=== PATIENT | female | born 1985 | race Caucasian/White ===

== ENCOUNTER 2018-01-03 15:00 | Outpatient (CLI) | payer MEDICAID ==
[2018-01-03 16:22] VITALS: BP 121/75
== END 2018-01-03 16:30 | disposition home or self-care (01) ==
LOC: ORTHO 15:00
PROVIDERS: ATTEND Nurse Practitioner Family
DX: M25.531 Pain in right wrist (principal); M25.532 Pain in left wrist; F12.90 Cannabis use, unspecified, uncomplicated; Z91.041 Radiographic dye allergy status; Z88.5 Allergy status to narcotic agent
CPT/HCPCS: 73100; 73110

== ENCOUNTER 2018-01-17 13:23 | Outpatient (CLI) | payer MEDICAID ==
[2018-01-17 13:22] VITALS: BP 129/94
== END 2018-01-17 14:14 | disposition home or self-care (01) ==
LOC: ORTHO 13:23
PROVIDERS: ATTEND Nurse Practitioner Family
DX: S69.91XD Unspecified injury of right wrist, hand and finger(s), subsequent encounter (principal); Z91.041 Radiographic dye allergy status; Z88.5 Allergy status to narcotic agent; W18.30XD Fall on same level, unspecified, subsequent encounter
CPT/HCPCS: 99212

== ENCOUNTER 2018-05-31 08:53 | Emergency (ER) | payer MEDICAID ==
[~2018-05-31] VITALS: Ht 177.8 cm; Wt 164.4 kg
[2018-05-31 09:34] LABS: CLARITY,URINE CLOUDY (Clear); COLOR,URINE YELLOW (Yellow); GLUCOSE, URINE NEGATIVE (Neg); KETONES,URINE NEGATIVE (Neg); LEUKOCYTE ESTERASE ,URINE MODERATE (Neg); NITRITES, URINE NEGATIVE (Neg); OCCULT BLOOD,URINE MODERATE (Neg); PH,URINE 6.5 (4.8-8.0); PROTEIN,URINE NEGATIVE (Neg); UA COLLECTION TYPE CLN CATCH MIDSTREAM; UROBILINOGEN,URINE 0.2 E.U/dL (0.2-1.0)
[2018-05-31 09:35] LABS: URINE HCG NEGATIVE (NEG)
[2018-05-31 09:42] LABS: BASOPHILS # (AUTO) 0.1 X10'3 (0-0.2); BASOPHILS % (AUTO) 0.5 % (0-1); EOSINOPHILS # (AUTO) 0.2 X10'3 (0-0.9); EOSINOPHILS % (AUTO) 1.6 % (0-6); HEMATOCRIT 41.1 % (35.0-45.0); HEMOGLOBIN 13.8 g/dl (12.0-16.0); LYMPHOCYTES # (AUTO) 2.1 X10'3 (1.1-4.8); LYMPHOCYTES % (AUTO) 20.8 % (21-51); MEAN CORPUSCULAR HEMOGLOBIN 28.1 PG (27.0-31.0); MEAN CORPUSCULAR HGB CONC 33.6 g/dL (33.0-36.5); MEAN CORPUSCULAR VOLUME 83.6 FL (78-98); MEAN PLATELET VOLUME 8.6 FL (7.4-10.4); MONOCYTES # (AUTO) 0.5 X10'3 (0-0.9); NEUTROPHILS # (AUTO) 7.3 X10'3 (1.8-7.7); NEUTROPHILS % (AUTO) 72.1 % (42-75); PLATELET COUNT 306 X10'3 (140-440); RED BLOOD COUNT 4.92 X10'6 (4.20-5.60); RED CELL DISTRIBUTION WIDTH 16.1 % (11.5-14.5); WHITE BLOOD COUNT 10.2 X10'3 (4.5-11.0)
[2018-05-31 09:42] LABS: BACTERIA,URINE 2+ /HPF (Neg); MUCUS STRANDS MODERATE /LPF (Neg); SQUAMOUS EPITHELIAL CELL,UR MANY /LPF (FEW)
[2018-05-31 09:43] LABS: WBC CLUMPS,URINE MANY /HPF (NEGATIVE); WBC,URINE 50-100 /HPF (0-4)
[2018-05-31 09:49] LABS: PROTHROMBIN TIME 10.4 SECONDS (9.0-12.0)
[2018-05-31 09:50] LABS: ALANINE AMINOTRANSFERASE 35 U/L (12-78); ALBUMIN 3.3 G/DL (3.4-5.0); ALBUMIN/GLOBULIN RATIO 0.7 (1.1-1.5); ALKALINE PHOSPHATASE 84 IU/L (46-116); AMYLASE 41 U/L (25-115); ANION GAP 10 (8-16); ASPARTATE AMINO TRANSFERASE 25 U/L (10-37); BILIRUBIN,TOTAL 0.4 MG/DL (0.1-1.0); BLOOD UREA NITROGEN 12 MG/DL (7-18); BUN/CREATININE RATIO 17.1 (6.6-38.0); CALCIUM 8.6 MG/DL (8.5-10.1); CHLORIDE 101 MMOL/L (99-107); GLUCOSE 94 MG/DL (70-104); LIPASE 92 U/L (73-393); POTASSIUM 4.2 MMOL/L (3.5-5.1); SODIUM 134 MMOL/L (135-145); TOTAL CARBON DIOXIDE 22.8 MMOL/L (24-32); eGFR > 90 ML/MIN
[2018-05-31] MEDS ORDERED: NO HOME MEDS (10:18)
--- NOTE | 2018-05-31 10:32 | NUR ---
Spoke with Fisher regarding pain level, Fisher PA stated that due to morphine allergy should could not administer narcotics. She wants to hold off on pain medication until CT resulted.
--- NOTE | 2018-05-31 11:29 | NUR ---
Ultrasound in progress
--- NOTE | 2018-05-31 12:11 | NUR ---
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
--- NOTE | 2018-05-31 12:11 | NUR ---
set up for pelv ic exam with dr farmer
--- NOTE | 2018-05-31 12:18 | NUR ---
VAGINAL EXAM COMPLETE BY CLARA MILLS,PRESENT JEREMI, WET M[place] SLIDE SENT
[2018-05-31] MEDS ORDERED: NITR100C6 PO (13:16)
[2018-05-31] MEDS ORDERED: ONDA4TAB6 PO (13:16)
[2018-05-31 13:46] VITALS: BP 132/78
[2018-06-01] MEDS ORDERED: ONDA4TAB12 PO (09:30)
[2018-06-01] MEDS ORDERED: CEPH500C5 PO (10:18)
== END 2018-05-31 13:47 | disposition home or self-care (01) ==
LOC: ER 08:53
DX: N39.0 Urinary tract infection, site not specified (principal); F12.90 Cannabis use, unspecified, uncomplicated; Z88.6 Allergy status to analgesic agent; Z90.49 Acquired absence of other specified parts of digestive tract
CPT/HCPCS: 36415; 74176; 76830; 76857; 80053; 81001; 81025; 82150; 83690; 85025; 85610; 87210; 87491; 99284

== ENCOUNTER 2018-06-01 07:14 | Emergency (ER) | payer MEDICAID ==
[~2018-06-01] VITALS: Ht 177.8 cm; Wt 164.0 kg
[~2018-06-01 07:14] MED LIST: NITR100C6 PO; NO HOME MEDS; ONDA4TAB6 PO
[2018-06-01] MEDS ORDERED: HYDROmorphone inj. 0.5 MG/0.5 ML DISP.SYRIN IV PRN (07:30)
[2018-06-01] MEDS ORDERED: normal saline 1000ML IV soln IVB ONE ×2 (07:30)
[2018-06-01] MEDS ORDERED: diphenhydrAMINE 50 mg/ml inj IV ONE (07:30)
[2018-06-01] MEDS ORDERED: LORazepam 2 mg/ml vial IV ONE (07:30)
[2018-06-01] MEDS ORDERED: metoclopramide 5 mg/ml inj IV ONE (07:30)
[2018-06-01 07:50] LABS: BASOPHILS % (AUTO) 0.3 % (0-1); EOSINOPHILS # (AUTO) 0.1 X10'3 (0-0.9); EOSINOPHILS % (AUTO) 1.1 % (0-6); HEMATOCRIT 40.9 % (35.0-45.0); HEMOGLOBIN 13.8 g/dl (12.0-16.0); LYMPHOCYTES # (AUTO) 1.8 X10'3 (1.1-4.8); LYMPHOCYTES % (AUTO) 18.6 % (21-51); MEAN CORPUSCULAR HGB CONC 33.6 g/dL (33.0-36.5); MEAN CORPUSCULAR VOLUME 83.4 FL (78-98); MEAN PLATELET VOLUME 8.6 FL (7.4-10.4); MONOCYTES # (AUTO) 0.5 X10'3 (0-0.9); MONOCYTES % (AUTO) 4.8 % (2-12); NEUTROPHILS # (AUTO) 7.2 X10'3 (1.8-7.7); NEUTROPHILS % (AUTO) 75.2 % (42-75); PLATELET COUNT 280 X10'3 (140-440); RED CELL DISTRIBUTION WIDTH 15.6 % (11.5-14.5); WHITE BLOOD COUNT 9.5 X10'3 (4.5-11.0)
[2018-06-01 08:24] LABS: ALANINE AMINOTRANSFERASE 35 U/L (12-78); ALBUMIN 3.4 G/DL (3.4-5.0); ALBUMIN/GLOBULIN RATIO 0.7 (1.1-1.5); ALKALINE PHOSPHATASE 85 IU/L (46-116); ANION GAP 10 (8-16); BILIRUBIN,TOTAL 0.5 MG/DL (0.1-1.0); BLOOD UREA NITROGEN 13 MG/DL (7-18); BUN/CREATININE RATIO 16.7 (6.6-38.0); CALCIUM 8.7 MG/DL (8.5-10.1); CHLORIDE 101 MMOL/L (99-107); CREATININE 0.78 MG/DL (0.40-0.90); GLUCOSE 101 MG/DL (70-104); LIPASE 85 U/L (73-393); POTASSIUM 3.9 MMOL/L (3.5-5.1); SODIUM 134 MMOL/L (135-145); TOTAL CARBON DIOXIDE 23.3 MMOL/L (24-32); TOTAL PROTEIN 8.2 G/DL (6.4-8.2); eGFR 84 ML/MIN
[2018-06-01 08:26] LABS: ASPARTATE AMINO TRANSFERASE 24 U/L (10-37)
[2018-06-01 08:28] LABS: PROTHROMBIN TIME 10.6 SECONDS (9.0-12.0)
[2018-06-01] MEDS ORDERED: ONDA4TAB12 PO (09:30)
[2018-06-01 09:49] LABS: CLARITY,URINE CLOUDY (Clear); COLOR,URINE YELLOW (Yellow); GLUCOSE, URINE NEGATIVE (Neg); KETONES,URINE NEGATIVE (Neg); LEUKOCYTE ESTERASE ,URINE SMALL (Neg); NITRITES, URINE NEGATIVE (Neg); OCCULT BLOOD,URINE SMALL (Neg); PROTEIN,URINE TRACE mg/dl (Neg); UROBILINOGEN,URINE 0.2 E.U/dL (0.2-1.0)
[2018-06-01 09:51] LABS: URINE HCG NEGATIVE (NEG)
[2018-06-01 10:06] LABS: UA COLLECTION TYPE CLN CATCH MIDSTREAM
[2018-06-01 10:07] LABS: SQUAMOUS EPITHELIAL CELL,UR MANY /LPF (FEW)
[2018-06-01 10:08] LABS: BACTERIA,URINE 2+ /HPF (Neg); WBC CLUMPS,URINE MANY /HPF (NEGATIVE); WBC,URINE 50-100 /HPF (0-4)
[2018-06-01] MEDS ORDERED: CEPH500C5 PO (10:18)
[2018-06-01] MEDS ORDERED: CefTRIAXone 2gm/D5W 50ml 50 ML IV ONE (10:20)
[2018-06-01 10:49] VITALS: BP 110/94
== END 2018-06-01 11:27 | disposition home or self-care (01) ==
LOC: ER 07:14
DX: N39.0 Urinary tract infection, site not specified (principal); R10.31 Right lower quadrant pain; F12.90 Cannabis use, unspecified, uncomplicated; Z90.49 Acquired absence of other specified parts of digestive tract; Z86.718 Personal history of other venous thrombosis and embolism; Z88.5 Allergy status to narcotic agent; Z79.899 Other long term (current) drug therapy
CPT/HCPCS: 36415; 80053; 81001; 81025; 83690; 84145; 85025; 85610; 96361; 96365; 96375; 99283; J0696; J1170; J1200; J2060; J2765; J7030

== ENCOUNTER 2018-11-11 08:28 | Emergency (ER) | payer MEDICAID ==
[~2018-11-11] VITALS: Ht 180.3 cm; Wt 161.0 kg
[~2018-11-11 08:28] MED LIST changes: +CEPH500C5 PO; +ONDA4TAB12 PO
[2018-11-11] MEDS ORDERED: apixaban 5mg tablet PO ONE (09:40)
[2018-11-11] MEDS ORDERED: APIX5TAB3 PO (10:01)
[2018-11-11] MEDS ORDERED: FLUC150T66 PO (10:01)
[2018-11-11 10:10] VITALS: BP 130/84
== END 2018-11-11 10:18 | disposition home or self-care (01) ==
LOC: ER 08:29
DX: I82.532 Chronic embolism and thrombosis of left popliteal vein (principal); N89.8 Other specified noninflammatory disorders of vagina; F12.90 Cannabis use, unspecified, uncomplicated; Z88.5 Allergy status to narcotic agent; Z88.8 Allergy status to other drugs, medicaments and biological substances; Z79.2 Long term (current) use of antibiotics; Z79.899 Other long term (current) drug therapy; Z90.49 Acquired absence of other specified parts of digestive tract; Z98.890 Other specified postprocedural states
CPT/HCPCS: 93971; 99284

== ENCOUNTER 2019-01-30 16:13 | Emergency (ER) | payer MEDICAID ==
[~2019-01-30] VITALS: Ht 180.3 cm; Wt 161.0 kg
[~2019-01-30 16:13] MED LIST changes: +APIX5TAB3 PO
[2019-01-30 16:17] VITALS: BP 140/98
== END 2019-01-30 17:19 | disposition home or self-care (01) ==
LOC: ER 16:13
DX: M25.532 Pain in left wrist (principal); F12.90 Cannabis use, unspecified, uncomplicated; F10.99 Alcohol use, unspecified with unspecified alcohol-induced disorder; Z86.718 Personal history of other venous thrombosis and embolism; Z90.49 Acquired absence of other specified parts of digestive tract; Z98.890 Other specified postprocedural states; Z88.6 Allergy status to analgesic agent; Z88.5 Allergy status to narcotic agent; Z79.899 Other long term (current) drug therapy; W01.0XXA Fall on same level from slipping, tripping and stumbling without subsequent striking against object, initial encounter; Y93.89 Activity, other specified; Y92.89 Other specified places as the place of occurrence of the external cause; Y99.8 Other external cause status; Y90.9 Presence of alcohol in blood, level not specified
CPT/HCPCS: 29125; 73110; 99284

== ENCOUNTER 2019-02-05 16:39 | Emergency (ER) | payer MEDICAID ==
[~2019-02-05] VITALS: Ht 180.3 cm; Wt 161.0 kg
[2019-02-05 16:43] VITALS: BP 120/78
== END 2019-02-05 17:40 | disposition home or self-care (01) ==
LOC: ER 16:40
DX: M25.532 Pain in left wrist (principal); F12.90 Cannabis use, unspecified, uncomplicated; Z90.49 Acquired absence of other specified parts of digestive tract; Z86.718 Personal history of other venous thrombosis and embolism; Z88.5 Allergy status to narcotic agent
CPT/HCPCS: 29125; 99283

== ENCOUNTER 2022-04-11 19:07 | Emergency (ER) | payer MEDICAID ==
[~2022-04-11] VITALS: Ht 177.8 cm; Wt 145.4 kg
[~2022-04-11 19:07] MED LIST changes: -CEPH500C5 PO
[2022-04-11 19:15] VITALS: BP 152/74
[2022-04-11] MEDS ORDERED: HYDR-3965 PO (21:11)
== END 2022-04-11 21:33 | disposition home or self-care (01) ==
LOC: ER 19:07
DX: M25.572 Pain in left ankle and joints of left foot (principal); F12.10 Cannabis abuse, uncomplicated; Z87.81 Personal history of (healed) traumatic fracture; Z88.5 Allergy status to narcotic agent; Z88.8 Allergy status to other drugs, medicaments and biological substances; Z79.899 Other long term (current) drug therapy; Z79.1 Long term (current) use of non-steroidal anti-inflammatories (NSAID)
CPT/HCPCS: 73630; 99283; A6449

== ENCOUNTER 2024-01-13 22:29 | Emergency (ER) | payer MEDICAID ==
[~2024-01-13] VITALS: Ht 177.8 cm; Wt 182.0 kg
[~2024-01-13 22:29] MED LIST changes: +ONDA-243 PO; -ONDA4TAB12 PO
[2024-01-13 23:05] VITALS: BP 133/85; PULSE 97; RESP 14; O2SAT 99
[2024-01-13] MEDS ORDERED: HYDR-3965 PO (23:48)
[2024-01-13] MEDS ORDERED: NAPR-56 PO (23:48)
[2024-01-13 23:53] VITALS: TEMP 98.7
== END 2024-01-13 23:56 | disposition home or self-care (01) ==
LOC: ER 22:30
DX: S66.812A Strain of other specified muscles, fascia and tendons at wrist and hand level, left hand, initial encounter (principal); S60.212A Contusion of left wrist, initial encounter; F12.90 Cannabis use, unspecified, uncomplicated; Z88.5 Allergy status to narcotic agent; Z91.018 Allergy to other foods; Z79.899 Other long term (current) drug therapy; Z90.49 Acquired absence of other specified parts of digestive tract; Z86.718 Personal history of other venous thrombosis and embolism; Z72.89 Other problems related to lifestyle; W10.8XXA Fall (on) (from) other stairs and steps, initial encounter; Y93.89 Activity, other specified; Y92.89 Other specified places as the place of occurrence of the external cause; Y99.8 Other external cause status
CPT/HCPCS: 73060; 73080; 73090; 73110; 99284

== ENCOUNTER 2024-02-06 08:58 | Emergency (ER) | payer MEDICAID ==
[~2024-02-06] VITALS: Ht 175.3 cm; Wt 178.1 kg
[~2024-02-06 08:58] MED LIST changes: +HYDR-3965 PO; +NAPR-56 PO
[2024-02-06 09:09] VITALS: BP 139/89; PULSE 85; RESP 18; TEMP 97.5; O2SAT 98
[2024-02-06] MEDS ORDERED: CEPH-585 PO (10:52)
== END 2024-02-06 11:03 | disposition home or self-care (01) ==
LOC: ER 08:58
DX: L03.115 Cellulitis of right lower limb (principal); F12.90 Cannabis use, unspecified, uncomplicated; Z88.1 Allergy status to other antibiotic agents; Z88.5 Allergy status to narcotic agent; Z88.8 Allergy status to other drugs, medicaments and biological substances; Z91.041 Radiographic dye allergy status; Z86.718 Personal history of other venous thrombosis and embolism; Z90.49 Acquired absence of other specified parts of digestive tract
CPT/HCPCS: 99283

== ENCOUNTER 2024-04-26 18:33 | Emergency (ER) | payer MEDICAID ==
[~2024-04-26] VITALS: Ht 177.8 cm; Wt 178.4 kg
[~2024-04-26 18:33] MED LIST changes: -HYDR-3965 PO; -NAPR-56 PO
[2024-04-26 18:36] VITALS: BP 167/81; PULSE 87; RESP 16; TEMP 98; O2SAT 98
== END 2024-04-26 19:29 | disposition home or self-care (01) ==
LOC: ER 18:34
DX: S63.602A Unspecified sprain of left thumb, initial encounter (principal); Z88.5 Allergy status to narcotic agent; Z91.041 Radiographic dye allergy status; F12.90 Cannabis use, unspecified, uncomplicated; Z90.49 Acquired absence of other specified parts of digestive tract; W22.8XXA Striking against or struck by other objects, initial encounter; Y93.71 Activity, boxing; Y92.89 Other specified places as the place of occurrence of the external cause; Y99.8 Other external cause status
CPT/HCPCS: 29125; 73130; 99283

== ENCOUNTER 2024-06-19 21:16 | Emergency (ER) | payer MEDICAID ==
[~2024-06-19] VITALS: Ht 177.8 cm; Wt 177.3 kg
[2024-06-19 23:07] VITALS: BP 140/89; PULSE 101; RESP 18; TEMP 98.6; O2SAT 99
== END 2024-06-19 23:08 | disposition home or self-care (01) ==
LOC: ER 21:16
DX: R11.2 Nausea with vomiting, unspecified (principal); T78.8XXA Other adverse effects, not elsewhere classified, initial encounter; F12.90 Cannabis use, unspecified, uncomplicated; Z88.5 Allergy status to narcotic agent; Z88.8 Allergy status to other drugs, medicaments and biological substances; Z90.49 Acquired absence of other specified parts of digestive tract; Z91.041 Radiographic dye allergy status; X58.XXXA Exposure to other specified factors, initial encounter
CPT/HCPCS: 82948; 99282